=== PATIENT | female | born 1965 | race Caucasian/White ===

== ENCOUNTER 2021-06-25 16:19 | Emergency (ER) | payer BC ==
[2021-06-25 17:12] LABS: HEMOGLOBIN 13.6 gm/dl (12.3-15.3); RED BLOOD COUNT 4.35 M/UL (4.00-5.10); WHITE BLOOD COUNT 8.4 K/UL (4.5-11.0)
[2021-06-25 17:47] LABS: BUN/CREATININE RATIO 21 (0-10)
[2021-06-25] MEDS ORDERED: ISOSORBIDE MONO30 MG PO (20:31)
== END 2021-06-25 20:45 | disposition home or self-care (01) ==
LOC: ER1 16:19
PROVIDERS: Physician Assistant
DX: R07.9 Chest pain, unspecified (principal); F17.200 Nicotine dependence, unspecified, uncomplicated; I10 Essential (primary) hypertension; E03.9 Hypothyroidism, unspecified; E66.9 Obesity, unspecified; Z90.49 Acquired absence of other specified parts of digestive tract; Z88.8 Allergy status to other drugs, medicaments and biological substances
CPT/HCPCS: 71045; 80053; 82550; 82553; 83874; 84484; 85025; 93005; 99284